=== PATIENT | female | born 2000 | race Caucasian/White ===

== ENCOUNTER 2019-01-03 06:09 | Outpatient (CLI) | payer OTHER ==
[~2019-01-03] VITALS: Ht 163.8 cm; Wt 68.2 kg
[2019-01-03 06:26] VITALS: BP 110/71
[2019-01-03] MEDS ORDERED: PODI1CAP PO (06:42)
[2019-01-03] MEDS ORDERED: COLA100C5 PO (06:42)
[2019-01-03] MEDS ORDERED: PRENTAB9 PO (06:42)
[2019-01-03] MEDS ORDERED: IRON65TA2 PO (06:42)
--- NOTE | 2019-01-03 07:45 | IPNPDOC ---
Text Note Date of Service The patient was seen on 01/03/19. NOTE 18 yo at 35+3 weeks gestation presented to L&D with the complaint of decreased movement. She reports this morning not feeling as much movement as usual. She also reports some mild abdominal pain that is fairly constant. She denies any contractions, vaginal bleeding, or leakage of fluid. She also denies any anorexia, n/v, diarrhea, constipation, or fevers/chills. She is visiting her boyfriend and is driving back to [place] in a couple days and wanted to get checked out before she left. Chaperoned by L&D RN Vitals - VSS, afebrile, normotensive, non tachycardic General - AAOX3, sitting up in bed, NAD, pleasant and conversant Abdomen - Gravid uterus, no fundal tenderness. Nontender to palpation throughout. No rebound, guarding, or peritoneal signs Extremities - No edema Bedside TAUS (anatomy not assessed): Viable SIUP in cephalic presentation. +FCA. +Gross movement. SANG 15.3cm. FHT tracing - Cat I throughout with moderate variability, +accels, no decels. Reassuring status based on FHR tracing and US findings. Patient felt movement while sitting in triage and was reassured. Abdominal discomfort is vag ue and there are no concerning exam findings or clinical history suggestive of acute issues. No signs of labor. Suspect intermittent MSK discomfort. Patient discharged home with return precautions. Adela Mcgowan DO VS,Sana, I+O VS, Sana, I+O Vital Signs Date Time Temp Pulse Resp B/P (MAP) Pulse Ox O2 Delivery O2 Flow Rate FiO2 01/03/19 06:26 97.8 88 18 110/71 (84) ADELA MCGOWAN DO Jan 03, 2019 07:45
== END 2019-01-03 07:40 | disposition home or self-care (01) ==
LOC: M LDO 06:09 → EDBD 06:09 → M LDO 07:40
PROVIDERS: ATTEND Obstetrics & Gynecology
DX: O36.8130 Decreased fetal movements, third trimester, not applicable or unspecified (principal); O26.893 Other specified pregnancy related conditions, third trimester; R10.30 Lower abdominal pain, unspecified; M54.5 Low back pain; Z3A.35 35 weeks gestation of pregnancy
CPT/HCPCS: 59025; 76815; G0378; G0463

== ENCOUNTER 2019-02-07 05:08 | Inpatient (IN) | payer OTHER ==
[2019-02-07] VITALS (43 sets, daily range): BP systolic 87–135; BP diastolic 48–93
[~2019-02-07] VITALS: Ht 162.6 cm; Wt 70.7 kg
[~2019-02-07 05:08] MED LIST: COLA100C5 PO; IRON65TA2 PO; PODI1CAP PO; PRENTAB9 PO
[2019-02-07] MEDS ORDERED: LR 1,000 ML IV SCH (06:08)
[2019-02-07] MEDS ORDERED: LACTATED RINGER'S 1000 ML IV STA (06:08)
[2019-02-07] MEDS ORDERED: OXYTOCIN DRIP 30 UNITS in APPROPRIATE DILUENT 1 EA IV SCH ×2 (06:15→18:58)
[2019-02-07 06:20] LABS: HEMATOCRIT 33.7 % (36.0-47.0); HEMOGLOBIN 11.2 g/dl (12.0-15.5); MEAN CORPUSCULAR HEMOGLOBIN 28.6 pg (27.0-33.0); MEAN CORPUSCULAR HGB CONC 33.2 g/dl (32.0-36.5); PLATELET COUNT, AUTOMATED 216 10^3/uL (150-450); RED BLOOD COUNT 3.92 10^6/uL (4.00-5.40); WHITE BLOOD COUNT 9.8 10^3/uL (4.0-10.0)
--- NOTE | 2019-02-07 06:37 | HPEPDOC ---
Obstetrical History & Physical General Date of Admission Feb 07, 2019 at 05:50 History of Present Illness 18 y/o at 40+3 with LOF since MN, nitr pos on initial RN exam. No VB. Reg ctx's, painful. Preg uncomplicated except for mild anemia. H/O closed spina bifida as an infant. No surgery and no back issues other than chronic pain. Care Care: Good Care (transfered here at 36 weeks) Dating Final EDC by: LMP, 1st trimester (US) Past Medical History Past Obstetrical History : Past Obstetrical History: [employer]END[employer] History: No pertinent history Past Medical History Surgical History: Other (ear tubes only) Family History Significant Family History: No pertinent family hx Social History Marital Status: Family situation: Spouse/partner home Psychosocial History: No pertinent psych hx * Smoker: non-smoker Alcohol: Denies Drugs: denies Abuse Violence Screening Have you been hit/kicked/slapp: No Have you been sexually assault: No Imunizations Tdap status: current Influenza Status: current Allergies Coded Allergies: No Known Allergies (Unverified , 01/03/19) Medications Scheduled No.137/Iron/Folic Acd ( Vitamin Tablet) 1 Each Tablet, 1 TAB PO DAILY Physical Examination Physical Examination GENERAL: Alert and oriented times three. BREAST: . ABDOMEN: Gravid and non-tender to touch. FETUS: Is vertex (VTX) by sterile vaginal examination (SVE) per RN, at ~530 was 1-2/80/0, nitr pos with obvious leaking fluid EXTREMITIES: No edema. Laboratory Data 24H LABS Laboratory Tests 2 02/07/19 05:52: Serology Scanned Report Hepatitis B Testing 02/07/19 06:06: Nucleated Red Blood Cells % (auto) 0.0 CBC/BMP Laboratory Tests 02/07/19 06:06 Red Blood Count 3.92 L, Mean Corpuscular Volume 86.0, Mean Corpuscular Hemoglobin 28.6, Mean Corpuscular Hemoglobin Concent 33.2, Red Cell Distribution Width 15.8 H Urine Culture: No Growth Pertinent Laboratoy Data Blood Type: O- RBC Antibody Screen: Negative (received rhogam) HIV: Negative Hepatitis B: Negative Hepatitis C: Unknown Rapid Plasma Reagin: Nonreactive Rubella: Immune Varicella: Unknown Chlamydia/Gonorrhea: Negative Group B Streptococcus: Positive Cystic Fibrosis: Negative Anatomy Ultrasound Placenta Location: Anterior Normal Anatomy: Yes Placenta Previa: No Assessment Variability: Moderate Accelerations: Positive Decelerations: None Tocometer Contractions: Yes Frequency: regular Duration: greater than 60 seconds Strength: palpated as moderate Assessment/Plan Assessment PROM at 40+3. Will hold on pitocin now due to freq and pain of ctx's. SBAR to Dr Mcgowan at 0700. Plan Admit and orient. Client Resolution Specialist and consent. Diet: clears Group B Streptococcus (GBS) neg Labs and intravenous (IV) per unit protocol. Counseled on possible need for eventual Pitocin augmentation Lactated Ringers (LR): Bolus 1000 mL prior to epidural, o/w at 125 mL/hr. Anticipate normal spontaneous delivery () C-S as appropriate. SESSIONS,PRINCE Christensen MD Feb 07, 2019 06:37
[2019-02-07] MEDS ORDERED: FENTANYL 2MCG/ML ROPIVACAINE 0.2% IN 0.9% NACL 100ML IVBAG As Ordered ONE (07:28)
[2019-02-07] MEDS: LR 1,000 ML IV SCH ×3 (08:00→16:20)
[2019-02-07] MEDS: FENTANYL/ROPIVACAINE/NACL BAG 100 ML EPIDURAL SCH ×2 (08:24→16:15)
[2019-02-07] MEDS ORDERED: EPIDURAL/PCA KEYS XX PRN (09:00)
[2019-02-07] MEDS ORDERED: LACTATED RINGER'S 1000 ML IV PRN (09:00)
[2019-02-07] MEDS ORDERED: REFRIGERATOR IV KEYS XX PRN (09:00)
[2019-02-07] MEDS ORDERED: diphenhydrAMINE INJ 50MG/ML VIAL (J1200) IV PRN (09:00)
[2019-02-07] MEDS ORDERED: ONDANSETRON 4MG/2ML VIAL (J2405) IV PRN (09:00)
[2019-02-07] MEDS ORDERED: NALOXONE INJ 0.4 MG/1 ML VIAL (J2310) IV PRN (09:00)
[2019-02-07] MEDS ORDERED: EPIDURAL COMMENT XX SCH (09:00)
[2019-02-07] MEDS: ePHEDrine SULFATE 25 MG/5 ML(5MG/ML) SYRINGE IV PRN ×2 (09:06→09:36)
--- NOTE | 2019-02-07 10:29 | IPNPDOC ---
Text Note Date of Service The patient was seen on 02/07/19. NOTE Received report from Dr. Dickson. 18 yo at 40+3 weeks gestation admitted for PROM this AM. Contractions have been regular, and she just received an epidural. Cervix /-1 per RN exam. FHR Cat I. Minimal change since last exam. Will recheck in 2-3 hours and if contractions have spaced and/or there is no significant cervical change, will start pitocin. DO Juan M VS,Sana, I+O VS, Sana, I+O Laboratory Tests 02/07/19 06:06 Red Blood Count 3.92 L, Mean Corpuscular Volume 86.0, Mean Corpuscular Hemoglobin 28.6, Mean Corpuscular Hemoglobin Concent 33.2, Red Cell Distribution Width 15.8 H Vital Signs Date Time Temp Pulse Resp B/P (MAP) Pulse Ox O2 Delivery O2 Flow Rate FiO2 02/07/19 09:09 70 18 97/53 (68) 02/07/19 07:40 97.5 ADELA BRYANT DO Feb 07, 2019 10:29
--- NOTE | 2019-02-07 12:07 | IPNPDOC ---
Text Note Date of Service The patient was seen on 02/07/19. NOTE Patient continues to be comfortable, though feels intermittent pressure when she's laying flat. Cervix: 5/80/-1. FHR Cat I. Patient continues to progress on her own power. Contractions remain regular. Will recheck in 2-4 hours or sooner if needed. All questions answered. DO Juan M VS,Sana, I+O VS, Sana, I+O Laboratory Tests 02/07/19 06:06 Red Blood Count 3.92 L, Mean Corpuscular Volume 86.0, Mean Corpuscular Hemog lobin 28.6, Mean Corpuscular Hemoglobin Concent 33.2, Red Cell Distribution Width 15.8 H Vital Signs Date Time Temp Pulse Resp B/P (MAP) Pulse Ox O2 Delivery O2 Flow Rate FiO2 02/07/19 11:05 97.9 92 18 130/61 (84) ADELA BRYANT DO Feb 07, 2019 12:07
[2019-02-07] MEDS ORDERED: OXYTOCIN 30 UNITS IN 0.9% NaCl 500ML IV BAG (J2590) As Ordered ONE (15:00)
--- NOTE | 2019-02-07 16:06 | IPNPDOC ---
Text Note Date of Service The patient was seen on 02/07/19. NOTE Presented to room for assessment of progress. Patient reports feeling near c onstant pressure. Cervix: AL/C/+1. FHR Cat I. Patient progressing well. Likely begin second stage soon. DO Juan M VS,Sana, I+O VS, Sana, I+O Laboratory Tests 02/07/19 06:06 Red Blood Count 3.92 L, Mean Corpuscular Volume 86.0, Mean Corpuscular Hemoglobin 28.6, Mean Corpuscular Hemoglobin Concent 33.2, Red Cell Distribution Width 15.8 H Vital Signs Date Time Temp Pulse Resp B/P (MAP) Pulse Ox O2 Delivery O2 Flow Rate FiO2 02/07/19 14:05 82 18 104/58 (73) 02/07/19 13:04 98.0 ADELA BRYANT DO Feb 07, 2019 16:06
[2019-02-07] MEDS ORDERED: PROMETHAZINE 25 MG TAB PO PRN (19:00)
[2019-02-07] MEDS ORDERED: DIBUCAINE 1% OINTMENT 30GM TOP PRN (19:00)
[2019-02-07] MEDS ORDERED: ACETAMINOPHEN TAB 650MG DOSE (2X325MG) PO PRN (19:00)
[2019-02-07] MEDS ORDERED: MEASLES,MUMPS,RUBELLA VACCINE INJ (MMR-II) (90707) SC SCH (19:00)
[2019-02-07] MEDS ORDERED: LIDOCAINE 1% MDV 20ML VIAL SC ONE (19:00)
[2019-02-07] MEDS ORDERED: RHOGAM 300 MCG (1500 IU) INJ (J2790) IM SCH (19:00)
[2019-02-07] MEDS ORDERED: DOCUSATE SODIUM 100 MG CAP PO PRN (19:00)
--- NOTE | 2019-02-07 19:05 | DNPDOC ---
[facility] Delivery Note Delivery Note DATE OF DELIVERY: 07Feb2019 at ~1830 PREDELIVERY DIAGNOSIS: 40+3 weeks gestation and active labor POST DELIVERY DIAGNOSIS: Delivered. PROCEDURE: Spontaneous vaginal delivery QUALITY TECHNICIAN: Dr. Mcgowan ANESTHESIA: Epidural ESTIMATED BLOOD LOSS: 250 mL. FINDINGS: Viable male , 8lbs 8oz (3850 grams), Apgars 8/9 DELIVERY SUMMARY: Presented to room for assessment. Elma was pushing well to +3 station. The bed was broken down and she was prepped for delivery. With excellent effort over ~2 hours of pushing her delivered. presentation was MANUELITO with restitution to ROT. The left anterior shoulder delivered with gentle traction followed easily by the remainder of the body. The infant was dried and stimulated on the field and a bulb suction was used. The was then placed on the maternal abdomen and cried vigorously. The three vessel cord was then clamped and cut by the FOB after appropriate time delay. Third stage was then completed with gentle traction on the cord and it was productive of an intact placenta. The uterine fundus was firmed with massage and pitocin was administered IV bolus. Inspection of the vagina, perineum, and cervix revealed a midline 1st degree vaginal floor and perineal laceration. Lidocaine was injected along the repair sites for additional analgesia. The laceration was repaired with 3-0 vicryl suture in the usual fashion. There was excellent cosmesis and hemostasis after the repair. The fundus was palpated again and was firm. Sponge, instrument, and needle counts were correct X2. Mother stable when I left the room. DO ANNETTE Osorio CHRISTOPHER J. DO Feb 07, 2019 19:05
[2019-02-07] MEDS: IBUPROFEN 600 MG TAB PO PRN (21:21)
--- NOTE | 2019-02-08 05:55 | IPNPDOC ---
Text Note Date of Service The patient was seen on 02/08/19. NOTE PPD1 status post uncomplicated spontaneous vaginal delivery at 39+3 wks yester day morning, no delivery complications, sore from some lacerations. She has been ambulating, voiding spontaneously without issue and tolerating regular diet. Breast feeding well and bonding appropriately. Reports lochia is light. Denies any pain or concerns. VITAL SIGNS: Within normal limits, afebrile. Alert and oriented times three. Abdomen: Fundus firm at U-2. Soft, NTTP. LE: no CCE A/P: 18 y/o G1 now P1001, PPD 1, stable and doing well. PLAN: 1. Likely d/c tomorrow AM. 2. Tylenol and Motrin for pain. 3. Encourage breast feeding on demand and ambulation. 4. Routine PP Care VS,Fishbone, I+O VS, Fishbone, I+O Laboratory Tests 02/07/19 06:06 Red Blood Count 3.92 L, Mean Corpuscular Volume 86.0, Mean Corpuscular Hemoglobin 28.6, Mean Corpuscular Hemoglobin Concent 33.2, Red Cell Distribution Width 15.8 H Vital Signs Date Time Temp Pulse Resp B/P (MAP) Pulse Ox O2 Delivery O2 Flow Rate FiO2 02/07/19 21:21 98.1 74 18 110/74 (86) I&O- Last 24 Hours up to 6 AM 02/08/19 06:00 Intake Total 4234 ml Output Total 3250 ml Balance 984 ml SESSIONS,PRINCE Christensen MD Feb 08, 2019 05:55
[2019-02-08] MEDS: IBUPROFEN 600 MG TAB PO PRN (06:07)
[2019-02-08 06:29] VITALS: BP 104/59
[2019-02-08] MEDS: PRENATAL VITAMINS CHEWABLE TABLET PO SCH (07:49)
[2019-02-08] MEDS: ACETAMINOPHEN 500 MG TAB PO PRN ×2 (11:42→19:32)
[2019-02-08] MEDS: IBUPROFEN 800 MG TAB PO PRN (14:13)
[2019-02-08] MEDS ORDERED: SLF 3 ML SYR IV PRN (14:15)
[2019-02-08 18:00] VITALS: BP 120/64
[2019-02-08] MEDS: SLF 3 ML SYR IV SCH (22:41)
[2019-02-09] MEDS: IBUPROFEN 800 MG TAB PO PRN ×2 (01:06→10:31)
[2019-02-09] MEDS: SLF 3 ML SYR IV SCH (05:54)
[2019-02-09 06:21] VITALS: BP 118/70
[2019-02-09] MEDS: PRENATAL VITAMINS CHEWABLE TABLET PO SCH (07:30)
[2019-02-09] MEDS ORDERED: IBUP-1022 PO (07:47)
[2019-02-09] MEDS ORDERED: ACET1TAB55 PO (07:47)
== END 2019-02-09 11:30 | disposition home or self-care (01) | DRG 807 ==
LOC: M LDO 05:08 → M LDI 05:50 → M OBS 21:13
PROVIDERS: ADMIT Obstetrics & Gynecology; ATTEND Obstetrics & Gynecology
PROC: 10E0XZZ Delivery of Products of Conception, External Approach (ICD-10-PCS; principal; 2019-02-07)
PROC: 0HQ9XZZ Repair Perineum Skin, External Approach (ICD-10-PCS; 2019-02-07)
DX: O48.0 Post-term pregnancy (principal); Z37.0 Single live birth; Z3A.40 40 weeks gestation of pregnancy; O70.0 First degree perineal laceration during delivery

== ENCOUNTER 2021-09-17 13:21 | Emergency (ER) | payer OTHER ==
[~2021-09-17] VITALS: Ht 162.6 cm; Wt 135.0 kg
[~2021-09-17 13:21] MED LIST changes: +ACET1TAB55 PO; +IBUP-1022 PO
[2021-09-17 13:22] VITALS: BP 111/67
[2021-09-17 14:15] LABS: HEMATOCRIT 40.4 % (36.0-47.0); HEMOGLOBIN 13.6 g/dl (12.0-15.5); MEAN CORPUSCULAR HEMOGLOBIN 29.4 pg (27.0-33.0); MEAN CORPUSCULAR HGB CONC 33.7 g/dl (32.0-36.5); MEAN CORPUSCULAR VOLUME 87.4 fl (80.0-96.0); PLATELET COUNT, AUTOMATED 199 10^3/uL (150-450); RED BLOOD COUNT 4.62 10^6/uL (4.00-5.40); WHITE BLOOD COUNT 6.9 10^3/uL (4.0-10.0)
[2021-09-17] MEDS ORDERED: KETOROLAC 30 MG/ML 1ML VIAL IV ONE (14:25)
[2021-09-17] MEDS ORDERED: ONDANSETRON 4MG/2ML VIAL IV ONE (14:25)
[2021-09-17] MEDS ORDERED: NS 1,000 ML IV ONE (14:25)
[2021-09-17] MEDS ORDERED: ISOVUE-370 76% 100ML VIAL As Ordered ONE (14:32)
[2021-09-17 14:53] LABS: ALBUMIN 3.8 GM/DL (3.2-5.2); BILIRUBIN,DIRECT 0.2 MG/DL (0.0-0.2); BILIRUBIN,TOTAL 0.5 MG/DL (0.2-1.0); TOTAL PROTEIN 7.1 GM/DL (6.4-8.2)
[2021-09-17] MEDS ORDERED: ONDA4TAB6 PO (16:14)
== END 2021-09-17 17:26 | disposition home or self-care (01) ==
LOC: M ED 13:21
DX: R10.9 Unspecified abdominal pain (principal); R11.0 Nausea; M54.9 Dorsalgia, unspecified; Z79.899 Other long term (current) drug therapy
CPT/HCPCS: 74177; 80047; 80076; 81001; 83690; 84702; 85027; 96361; 96374; 96375; 99283; J1885; J2405; Q9967

== ENCOUNTER → 2021-10-18 | Outpatient (CLI) | payer OTHER ==
[~2021-10-18] MED LIST changes: +ONDA4TAB6 PO
== END ==
LOC: M SOG 11:19
PROVIDERS: ATTEND Physician Assistant
DX: M79.642 Pain in left hand (principal)